=== PATIENT | female | born 1970 | race Caucasian/White ===

== ENCOUNTER 2017-02-07 19:07 | Emergency (ER) | payer OTHER ==
[~2017-02-07 19:07] MED LIST: ATIVAN PO; BISACODYL10 MG/SUPP PR; CARAFATE PO; CERTAGEN PO; CIPRO PO; LORTAB 10/500 T1 TAB PO; MIRALAX255 GM PO; NO MEDICATIONS; PERCOCET10 PO; PERCOCET5/325 PO; PROTONIX PO; SUBOXONE 8 MG-1 EAC1 SL; VICODIN 5/1 TAB 5/50 PO; VITAMIN B COMPLEX; ZOFRAN PO
[2017-02-07 19:18] LABS: URINE SOURCE CLEAN CATCH
[2017-02-07 19:25] LABS: URINE APPEARANCE TURBID; URINE BILIRUBIN NEG (NEG); URINE BLOOD 2+ (NEG); URINE COLOR DK YELLOW; URINE GLUCOSE NEG (NEG); URINE KETONE TRACE (NEG); URINE LEUKOCYTE ESTERASE 2+ (NEG); URINE NITRATE NEG (NEG); URINE PROTEIN NEG (NEG); URINE SPECIFIC GRAVITY 1.026 (1.003-1.035)
[2017-02-07 19:29] LABS: CULTURE INDICATED? YES; URINE BACTERIA AUWI 2+ (NEGATIVE); URINE SQUAMOUS EPITHELIAL CELL MANY /[HPF]; UWBCS1 AUWI 100-200 (0-5)
[2017-02-07 19:45] LABS: U HYALINE CASTS AUWI 0-2 /[LPF]
[2017-02-11 17:40] LABS: CHLAMYDIA TRACH Not Detected (Not Detected); N GONOR Not Detected (Not Detected)
== END 2017-02-07 20:18 | disposition home or self-care (01) ==
LOC: CFTX 19:07
PROVIDERS: Nurse Practitioner
DX: J02.9 Acute pharyngitis, unspecified (principal); H65.192 Other acute nonsuppurative otitis media, left ear; N76.0 Acute vaginitis; A59.9 Trichomoniasis, unspecified; F17.210 Nicotine dependence, cigarettes, uncomplicated
CPT/HCPCS: 81003; 84703; 87086; 87491; 87591; 87651; 87808; 87905; 96372; 99284; J0696

== ENCOUNTER 2017-06-25 22:37 | Emergency (ER) | payer OTHER ==
[2017-06-26 00:44] LABS: URINE SOURCE CLEAN CATCH
[2017-06-26 00:48] LABS: URINE APPEARANCE CLOUDY; URINE BLOOD 3+ (NEG); URINE COLOR DK YELLOW; URINE GLUCOSE NEG (NEG); URINE KETONE NEG (NEG); URINE LEUKOCYTE ESTERASE 2+ (NEG); URINE NITRATE POS (NEG); URINE PROTEIN NEG (NEG); URINE SPECIFIC GRAVITY 1.018 (1.003-1.035)
[2017-06-26 00:51] LABS: CULTURE INDICATED? YES; URINE BACTERIA AUWI 4+ (NEGATIVE); UWBCS1 AUWI 100-200 (0-5)
[2017-06-26 01:21] LABS: URINE BILIRUBIN NEG (NEG)
[2017-06-26 01:23] LABS: URINE SQUAMOUS EPITHELIAL CELL MANY /[HPF]
== END 2017-06-26 01:55 | disposition home or self-care (01) ==
LOC: CED 22:37 → CFTX 22:37
PROVIDERS: Nurse Practitioner
DX: N39.0 Urinary tract infection, site not specified (principal); F32.9 Major depressive disorder, single episode, unspecified; F17.210 Nicotine dependence, cigarettes, uncomplicated
CPT/HCPCS: 81003; 84703; 87086; 87088; 87186; 99283